=== PATIENT | female | born 1945 | race Caucasian/White ===

== ENCOUNTER 2017-06-09 10:20 | Outpatient (CLI) | payer MEDICARE ==
[2017-06-09 11:43] LABS: Hematocrit 35.6 % (36.0-47.0); White Blood Cell (WBC) Count 8.4 thou/uL (4.8-10.8)
[2017-06-09 12:08] LABS: Anion Gap 11 mmol/L (10-20); BUN (Urea Nitrogen) 15 mg/dL (9.8-20.1); Calc. Creatinine Clearance 0 mL/min (70-130); Calcium 9.7 mg/dL (7.8-10.44); Carbon Dioxide 26 mmol/L (23-31); Chloride 101 mmol/L (98-107); Estimated GFR-MDRD 71
== END 2017-06-09 10:21 | disposition home or self-care (01) ==
LOC: LABBT 10:20
PROVIDERS: ATTEND Thoracic Surgery (Cardiothoracic Vascular Surgery)
DX: Z01.812 Encounter for preprocedural laboratory examination (principal)
CPT/HCPCS: 80048; 85027

== ENCOUNTER 2017-06-12 05:49 | Day surgery (SDC) | payer MEDICARE ==
--- NOTE | 2017-06-08 22:40 | HP ---
HISTORY OF PRESENT ILLNESS: This is a 72-year-old female who has been seen for vascular disease by qian rodriguez for several years. She recently has been unable to walk very far due to complaints of fatigue as well as pain in the lower back, hips and thighs. She thinks the right side is worse than the left . She is now as mentioned using a walker to get around. PAST MEDICAL HISTORY: Significant for remote stroke that has left her with some mild speech impedime nt and some memory issues. Her cardiovascular risk factors include hypertension and dyslipidemia. S he has a history of abdominal aortic aneurysm, coronary artery disease, degenerative joint disease. PAST SURGICAL HISTORY: Includes hysterectomy, right carotid endarterectomy in 2014 followed by coron andrew artery bypass grafting as well as a left carotid endarterectomy in 2016. SOCIAL HISTORY: The patient was a former smoker, but none in the past several years. She does not u se alcohol. MEDICATIONS: Include Crestor 40, aspirin 325, lisinopril 10 daily, Zetia 10 daily, Plavix 75 daily, Norvasc 10 daily, Glucosamine and iron supplements. ALLERGIES: She reports no allergies. REVIEW OF SYSTEMS: Significant for some weight loss. She denies any respiratory symptoms such as co ugh or dyspnea on exertion. She has no chest pain at rest or with exertion. She has no abdominal pa in, no change in bowel habits. No urinary complaints. She does admit to balance difficulty, some sp eech difficulty, if she gets anxious or excited. She has memory loss. CT scan demonstrated a 3.9 cm abdominal aortic aneurysm with an intimal flap in the infrarenal aorta. She also has a distal aorti c and bilateral common iliac artery stenosis with the right being worse than the left and the right h aving some tortuosity. She has some mild to moderate renal artery stenosis as well as celiac artery stenosis and some moderate distal vascular disease. PHYSICAL EXAMINATION: VITAL SIGNS: Weight is 101, height 5 foot 1 inches, blood pressure 170/70, alert, cooperative lady i n no distress. NECK: Bilateral bruits, prominent right clavicular head. CARDIAC: Regular rate and rhythm, no murmurs. LUNGS: Clear to auscultation bilaterally. ABDOMEN: Soft, nontender, nondistended with prominent aortic pulsation and bilateral pelvic bruits. EXTREMITIES: No peripheral edema with a strong right femoral pulse and dorsalis pedis pulse and a we nanette left femoral and dorsalis pedis pulse. IMAGING: Abdominal ultrasound demonstrates 3.6 cm abdominal aneurysm with elevated renal velocities bilaterally of 361 on the left and 467 on the right. She has a left iliac velocity of 374 cm per sec ond and right of 194 cm per second. PLAN: At this time is for angiography and possible bilateral iliac artery stenting.
[2017-06-09 10:49] VITALS: BMI 18.6
[2017-06-12] MEDS ORDERED: Heparin 1000 UNIT/NS 500ML(OR) 500 ML ONE (06:37)
[2017-06-12] MEDS ORDERED: Midazolam HCl 2 mg/2 ml Vial ONE (07:16)
[2017-06-12] MEDS ORDERED: Fentanyl 100 MCG/2 ML VIAL ONE ×2 (07:17→10:16)
[2017-06-12] MEDS ORDERED: Heparin 10,000 UNITS/1 ML VIAL ONE (07:41)
[2017-06-12] MEDS ORDERED: Protamine Sulfate 50 MG/5 ML VIAL ONE (08:27)
[2017-06-12] MEDS ORDERED: Amlodipine 5 MG TAB ONE (09:03)
[2017-06-12] MEDS ORDERED: Lisinopril 10 MG TAB ONE (09:04)
--- NOTE | 2017-06-12 10:13 | OP ---
PREOPERATIVE DIAGNOSIS: Peripheral artery disease with severe claudication. POSTOPERATIVE DIAGNOSIS: Peripheral artery disease with severe claudication. PROCEDURE: Aortoiliac femoral angiograms with right common iliac stent x2, 7 x 27, and left common i liac x1, 7 x 37 using kissing stent technique. CONTRAST: 44. FLUOROSCOPY: 20 minutes. DESCRIPTION OF PROCEDURE: After adequate prepping and draping, 1% lidocaine was used to infiltrate t he right groin, access was obtained. Wire passed and a 5 [place] dilator and sheath. Following this, angiography was obtained retrograde and then through a Contra catheter. This demonstrated high grad e stenosis of the right common iliac artery. It also showed an abdominal aortic aneurysm. Following this, the left groin was anesthetized and punctured and a 6 [place] marker sheath was advanced. Hepa rin was given x10,000 units and two 5,000 units boluses to obtain an adequate ACT. A 5-[place] sheath on the right was exchanged for a 6 [place] marker sheath. A 5 x 4 balloons were then used to predila te the common iliac arteries bilaterally. Following this, on the left, a 7 x 37 stent was advanced a nd positioned. On the right, a 7 x 27 stent would not advance through the stenosis and upon withdraw ing it into the sheath, the stent began to deploy. It was then readvanced as far as it would go and deployed with about distal 3/4 of it being balloon. Following this, a 5 x 2 balloon would not advanc e over the wire. A glide catheter was then advanced over the wire and did go through the stent and a Magic Torque wire was then placed for additional stiffness. Following this, a 5 x 2 balloon was abl e to be advanced and inflated. A second 7 x 27 stent was then advanced into the previously deployed 7 x 27 stent and advanced slightly farther into the aorta to obtain full coverage as the initial sten t did not completely cover the stenosis due to the inability to advance it initially. Following this , bilateral stenting was deployed in the kissing stent fashion following which retrograde angiography bilaterally demonstrated nice result. The right side could have been post-dilated slightly in the c ommon iliac artery. However, it was elected to leave the stents as they were. The patient tolerated the procedure well.
[2017-06-12] MEDS ORDERED: Ondansetron HCl/PF 4 MG/2 ML Vial IVP PRN (10:26)
[2017-06-12] MEDS ORDERED: Fentanyl 100 MCG/2 ML VIAL SLOW IVP PRN ×2 (10:26)
[2017-06-12] MEDS ORDERED: Ondansetron HCl/PF 4 MG/2 ML Vial ONE (13:58)
[2017-06-12] MEDS ORDERED: Iopamidol 370 76% 50 ML VIAL FS ONE (17:11)
== END 2017-06-12 15:54 | disposition home or self-care (01) ==
LOC: CCL 05:49
PROVIDERS: ATTEND Thoracic Surgery (Cardiothoracic Vascular Surgery)
DX: I73.9 Peripheral vascular disease, unspecified (principal); I71.4 Abdominal aortic aneurysm, without rupture; I69.328 Other speech and language deficits following cerebral infarction; I69.311 Memory deficit following cerebral infarction; I10 Essential (primary) hypertension; I25.10 Atherosclerotic heart disease of native coronary artery without angina pectoris; M19.90 Unspecified osteoarthritis, unspecified site; Z79.899 Other long term (current) drug therapy; Z79.82 Long term (current) use of aspirin; Z79.02 Long term (current) use of antithrombotics/antiplatelets; Z91.048 Other nonmedicinal substance allergy status; Z95.1 Presence of aortocoronary bypass graft; Z90.710 Acquired absence of both cervix and uterus; Z98.890 Other specified postprocedural states; Z87.891 Personal history of nicotine dependence
CPT/HCPCS: 37221; 37223; 85347 ×2; 96374 ×2; C1725 ×2; C1769; C1876 ×2; 99152; 99153; J1644; J2250; J2405; J2720; J3010

== ENCOUNTER 2017-06-14 20:31 | Emergency (ER) | payer MEDICARE ==
[2017-06-14 22:09] LABS: #Basophils 0.1 thou/uL (0.0-0.2); #Eosinphils 0.3 thou/uL (0.0-0.7); #Lymphocytes 1.4 thou/uL (1.20-3.40); #Monocytes 0.8 thou/uL (0.11-0.59); #Neutrophils 4.9 thou/uL (1.40-6.50); %Basophils 1.2 % (0.0-1.0); %Eosinophils 3.9 % (0.0-10.0); %Lymphocytes 18.1 % (21.0-51.0); %Monocytes 11.1 % (0.0-10.0); Hematocrit 29.2 % (36.0-47.0); Mean Platelet Volume 6.6 fL (7.4-10.4); Red Blood Cell (RBC) Count 2.97 mill/uL (4.20-5.40); White Blood Cell (WBC) Count 7.5 thou/uL (4.8-10.8)
[2017-06-14 22:16] LABS: Prothrombin Time 12.8 SEC (12.0-14.7)
[2017-06-14 22:22] LABS: ALT (SGPT) Less than 7 U/L (8-55); AST (SGOT) 10 U/L (5-34); Alkaline Phosphatase 91 U/L (40-150); Anion Gap 12 mmol/L (10-20); BUN (Urea Nitrogen) 18 mg/dL (9.8-20.1); Bilirubin, Total 0.2 mg/dL (0.2-1.2); Calc. Creatinine Clearance 0 mL/min (70-130); Calcium 8.9 mg/dL (7.8-10.44); Carbon Dioxide 27 mmol/L (23-31); Chloride 103 mmol/L (98-107); Estimated GFR-MDRD 67; Protein, Total 6.7 g/dL (6.0-8.3)
--- NOTE | 2017-06-14 23:30 | ULT ---
ARTERIAL DOPPLER STUDY LEFT GROIN: 06/14/17 HISTORY: Left groin pain. Previous stent placement in the left groin. Left common femoral artery shows normal blood flow. The visualized superficial femoral artery also sh ows normal blood flow. No evidence of pseudoaneurysm identified. IMPRESSION: No evidence of pseudoaneurysm. POS: [facility]
== END 2017-06-14 23:55 | disposition home or self-care (01) ==
LOC: ERS 20:31
DX: I97.638 Postprocedural hematoma of a circulatory system organ or structure following other circulatory system procedure (principal); D64.9 Anemia, unspecified; I25.2 Old myocardial infarction; E78.5 Hyperlipidemia, unspecified; I10 Essential (primary) hypertension; Z86.73 Personal history of transient ischemic attack (TIA), and cerebral infarction without residual deficits; Z87.891 Personal history of nicotine dependence; Z79.899 Other long term (current) drug therapy; Z79.82 Long term (current) use of aspirin
CPT/HCPCS: 36415; 80053; 85025; 85610; 93923; 99406

== ENCOUNTER 2018-04-19 11:03 | Outpatient (CLI) | payer MEDICARE | END 2018-04-19 11:04 | disposition home or self-care (01) | LOC: BICMAMMO 11:03 | PROVIDERS: ATTEND Family Medicine | DX: Z12.31 Encounter for screening mammogram for malignant neoplasm of breast (principal); R92.1 Mammographic calcification found on diagnostic imaging of breast | CPT/HCPCS: 77063; 77067 ==

== ENCOUNTER 2018-07-02 12:29 | Outpatient (CLI) | payer MEDICARE ==
--- NOTE | 2018-07-02 17:05 | CT ---
CT LUMBAR SPINE NONCONTRAST: Date: 07/02/18 HISTORY: 73-year-old female with chronic low back pain, right lumbar radiculopathy, and lumbar spinal stenosis . COMPARISON: 11/09/11. FINDINGS: Again noted are the bilateral common iliac artery stents, and the severe atherosclerotic calcificatio n of the abdominal aorta and the iliac arteries. There is now a fusiform infrarenal abdominal aortic aneurysm, which is at least 3.5 cm, and perhaps larger (portions of the abdominal aorta are excluded from the field of view). There are five lumbar-type vertebrae. T12-L1: Normal. L1-2: Mild diffuse disc bulge. No central stenosis. Mild to moderate bilateral neural foraminal sten osis due to the disc bulge. Mild to moderate disc space narrowing. L2-3: Moderately large diffuse disc bulge. Mild to moderate bilateral neural foraminal stenosis. Mil d to moderate central spinal canal stenosis. L3-4: Whereas previously there was no significant disc space narrowing, now there is severe right-si ded disc space narrowing where there is right-sided sclerosis with numerous new subchondral cysts, an d vacuum disc phenomenon. There is a new finding of Grade I left lateral chronic subluxation of L3 on L4. The right lateral and far lateral component of the large diffuse disc bulge causes severe right neural foraminal stenosis, with compression of the exiting right L3 nerve root, much worse than on pr evious CT. There is moderate left neural foraminal stenosis, worse than on the previous CT. The centr al spinal canal stenosis and thecal sac stenosis is now much worse, extremely severe. L4-5: There has been interval worsening of the Grade I left lateral chronic subluxation of L4 on L5, now almost Grade II. Interval worsening of now severe disc space narrowing with end plate irregulari ty and sclerosis. Previously, the right lateral and far lateral component of the disc bulge was causi ng complete effacement of right neural foraminal fat, markedly compressing the exiting right L4 nerve root. There continues to be severe right neural foraminal stenosis. There is moderate ligamentum fla vum thickening and degenerative facet hypertrophy. Severe central spinal canal and thecal sac stenosi s. There is also moderate to severe left neural foraminal stenosis, slightly worse than before. L5-S1: Severe bilateral degenerative facet disease causes prominent Grade I anterolisthesis of L5 on S1, which appears slightly worse now. Diffuse disc bulge. Moderate to severe right neural foraminal stenosis. Very severe left neural foraminal stenosis with chronic compression of the exiting left L5 nerve root. Moderate central spinal canal stenosis. Severe bilateral lateral recess stenosis. IMPRESSION: 1. Severe lumbar spondylosis, with lower level severe degenerative disc disease and severe facet ost eoarthrosis, which have all worsened significantly since 11/09/11. 2. Interval worsening of multilevel severe neural foraminal stenosis at several levels, with esteban richie of exiting nerve roots. 3. Interval worsening of central spinal canal stenosis, which is extremely severe at L3-4, and sever e at L4-5. 4. Interval worsening of Grade I spondylolisthesis at L4-5. 5. Interval worsening of degenerative levoscoliosis. 6. Interval worsening of abdominal aortic ectasia, now aneurysmal, incompletely evaluated. 7. Bilateral common iliac artery stents. POS: [facility]
== END 2018-07-02 12:30 | disposition home or self-care (01) ==
LOC: BICCT 12:29
PROVIDERS: ATTEND Anesthesiology Pain Medicine
DX: M48.062 Spinal stenosis, lumbar region with neurogenic claudication (principal); M51.36 Other intervertebral disc degeneration, lumbar region; M47.816 Spondylosis without myelopathy or radiculopathy, lumbar region; M43.16 Spondylolisthesis, lumbar region; M41.9 Scoliosis, unspecified; I71.4 Abdominal aortic aneurysm, without rupture; Z95.828 Presence of other vascular implants and grafts
CPT/HCPCS: 72131

== ENCOUNTER 2020-05-18 10:54 | Emergency (ER) | payer MEDICARE ==
[2020-05-18] MEDS ORDERED: Ketorolac Tromethamine 30 MG/ML VIAL ONE (11:45)
[2020-05-18] MEDS ORDERED: traMADol HCl 50 MG TAB ONE (11:45)
--- NOTE | 2020-05-18 11:48 | RAD ---
Exam: Lumbar spine 3 views HISTORY: Pain. Arthritis. COMPARISON: None Correlation: CT lumbar spine 07/02/2018 FINDINGS: Diffuse bony mineralization. There is levoscoliosis of the lumbar spine, similar to the pre vious CT. Lumbar spine vertebral body heights are maintained. No fracture. There is vacuum disc phenomenon at L3-L4. There is severe loss of disc space height with calcification of the disc space a t L4-L5. There is fusion of the L5-S1 disc space. There is straightening of normal lumbar lordosis. Visualized sacrum and bony pelvis are intact There is atherosclerosis of the visualized aorta. There is aneurysmal dilatation of the distal abdomi nal aorta, incompletely evaluated. There are 2 stents injecting over the aorta and pelvis which are presumed to be in the common iliac arteries. IMPRESSION: 1. Extensive, likely chronic degenerative changes of the lumbar spine. 2. Aneurysm of the distal abdominal aorta.
== END 2020-05-18 12:55 | disposition home or self-care (01) ==
LOC: ERS 10:54
DX: M54.5 Low back pain (principal); I25.2 Old myocardial infarction; E78.5 Hyperlipidemia, unspecified; I10 Essential (primary) hypertension; F17.210 Nicotine dependence, cigarettes, uncomplicated
CPT/HCPCS: 72100; 96372; J1885

== ENCOUNTER 2022-09-27 17:10 | Emergency (ER) | payer MEDICARE ==
[2022-09-27 17:47] LABS: #Basophils 0.1 thou/uL (0.0-0.2); #Eosinphils 0.2 thou/uL (0.0-0.7); #Lymphocytes 1.1 thou/uL (1.20-3.40); #Monocytes 1.3 thou/uL (0.11-0.59); #Neutrophils 7.7 thou/uL (1.40-6.50); %Basophils 0.6 % (0.0-1.0); %Eosinophils 1.6 % (0.0-10.0); %Lymphocytes 10.7 % (21.0-51.0); %Monocytes 12.1 % (0.0-10.0); Hemoglobin 11.7 g/dL (12.0-16.0); Mean Corpuscular HGB CONC 31.9 g/dL (32.0-36.0); Mean Corpuscular Volume 97.4 fl (78.0-98.0); Mean Platelet Volume 7.9 fL (7.4-10.4); Platelet Count 278 10x3/uL (130-400); RBC Distribution Width 11.9 % (11.5-14.5); Red Blood Cell (RBC) Count 3.76 mill/uL (4.20-5.40); White Blood Cell (WBC) Count 10.3 10x3/uL (4.8-10.8)
[2022-09-27 18:17] LABS: ALT (SGPT) Less than 7 U/L (8-55); AST (SGOT) 16 U/L (5-34); Albumin 4.2 g/dL (3.4-4.8); Alkaline Phosphatase 88 U/L (40-110); Anion Gap 14 mmol/L (10-20); BUN (Urea Nitrogen) 19 mg/dL (9.8-20.1); Bilirubin, Total 0.3 mg/dL (0.2-1.2); Calc. Creatinine Clearance 0 mL/min (70-130); Calcium 9.4 mg/dL (7.8-10.44); Carbon Dioxide 26 mmol/L (23-31); Chloride 101 mmol/L (98-107); Estimated GFR 59; Globulin 3.4 g/dL (2.4-3.5); Glucose 113 mg/dL (83-110); Lipase 134 U/L (8-78); Potassium 4.3 mmol/L (3.5-5.1); Protein, Total 7.6 g/dL (5.8-8.1); Sodium 137 mmol/L (136-145)
[2022-09-27 18:31] LABS: CKMB 2.1 ng/mL (0-6.6)
[2022-09-27] MEDS ORDERED: Ipratropium/Albuterol 3 ML NEB ONE (19:18)
== END 2022-09-27 20:19 | disposition left against medical advice (07) ==
LOC: ERS 17:10
DX: R07.9 Chest pain, unspecified (principal); R06.02 Shortness of breath; E78.5 Hyperlipidemia, unspecified; I10 Essential (primary) hypertension; F17.210 Nicotine dependence, cigarettes, uncomplicated; Z79.899 Other long term (current) drug therapy
CPT/HCPCS: 36415; 71045; 80053; 82553; 83690; 84484; 85025; 93005; 94644; J7611; J7620

== ENCOUNTER 2022-09-30 05:17 | Inpatient (IN) | payer MEDICARE ==
[2022-09-30] MEDS ORDERED: Aspirin Chewable 81 MG TAB ONE (05:58)
[2022-09-30 06:07] LABS: #Basophils 0.1 thou/uL (0.0-0.2); #Eosinphils 0.2 thou/uL (0.0-0.7); #Lymphocytes 0.8 thou/uL (1.20-3.40); #Neutrophils 6.2 thou/uL (1.40-6.50); %Basophils 0.6 % (0.0-1.0); %Eosinophils 2.2 % (0.0-10.0); %Lymphocytes 9.8 % (21.0-51.0); %Monocytes 12.4 % (0.0-10.0); Hemoglobin 10.5 g/dL (12.0-16.0); Mean Corpuscular HGB CONC 32.7 g/dL (32.0-36.0); Mean Corpuscular Hemoglobin 31.8 pg (27.0-31.0); Mean Corpuscular Volume 97.3 fl (78.0-98.0); Mean Platelet Volume 7.8 fL (7.4-10.4); Platelet Count 260 10x3/uL (130-400); Red Blood Cell (RBC) Count 3.31 mill/uL (4.20-5.40); White Blood Cell (WBC) Count 8.2 10x3/uL (4.8-10.8)
[2022-09-30 06:23] LABS: ALT (SGPT) 14 U/L (8-55); AST (SGOT) 51 U/L (5-34); Albumin 3.7 g/dL (3.4-4.8); Alkaline Phosphatase 79 U/L (40-110); Anion Gap 15 mmol/L (10-20); BUN (Urea Nitrogen) 20 mg/dL (9.8-20.1); Bilirubin, Total 0.3 mg/dL (0.2-1.2); Calc. Creatinine Clearance 0 mL/min (70-130); Calcium 9.3 mg/dL (7.8-10.44); Carbon Dioxide 24 mmol/L (23-31); Chloride 104 mmol/L (98-107); Estimated GFR 66; Globulin 3.2 g/dL (2.4-3.5); Glucose 134 mg/dL (83-110); Potassium 3.5 mmol/L (3.5-5.1); Protein, Total 6.9 g/dL (5.8-8.1); Sodium 139 mmol/L (136-145)
[2022-09-30 06:50] LABS: CKMB 19.6 ng/mL (0-6.6)
[2022-09-30 07:00] LABS: SARS-CoV-2 NAA Rapid Test Not Detected (NotDetected)
[2022-09-30] MEDS ORDERED: Nitroglycerin 0.4 MG TAB (25 Tab Bottle) SL PRN (08:54)
[2022-09-30] MEDS ORDERED: Morphine 2 MG/ML VIAL SLOW IVP PRN (08:55)
[2022-09-30] MEDS ORDERED: Acetaminophen 325 MG TAB PO PRN (08:59)
[2022-09-30] MEDS ORDERED: Calcium Carbonate 500 MG ChewTAB PO PRN (08:59)
[2022-09-30] MEDS ORDERED: Ondansetron PF 4 MG/2 ML Vial IVP PRN (08:59)
[2022-09-30] MEDS ORDERED: Ondansetron ODT 4 MG TAB PO PRN (08:59)
[2022-09-30] MEDS ORDERED: Bisacodyl 10 MG SUPP PR PRN (08:59)
[2022-09-30] MEDS ORDERED: Metoprolol Tartrate 25 MG TAB PO SCH (09:00)
[2022-09-30] MEDS ORDERED: Electrolyte Replacement Protocol 1 EACH FS SCH (09:00)
[2022-09-30] MEDS ORDERED: Clopidogrel Bisulfate 75 MG TAB PO SCH (09:00)
[2022-09-30] MEDS ORDERED: NS 0.9% w/ 20 MEQ KCL 1,000 ML/1,000 ML BAG IV SCH ×2 (09:00→10:19)
[2022-09-30] MEDS ORDERED: Aspirin 81 mg Enteric Coated Tablet PO SCH (09:00)
[2022-09-30] MEDS ORDERED: Potassium Chloride 20 MEQ TAB PO SCH (09:00)
[2022-09-30] MEDS ORDERED: Communication Order-Pharmacy FS SCH (09:04)
[2022-09-30 10:22] LABS: CKMB 18.3 ng/mL (0-6.6)
[2022-09-30 12:10] VITALS: BMI 18.0
[2022-09-30] MEDS ORDERED: Magnesium 2 GM/50 ML(in water) 2 GM in Premix Bag 1 BAG IVPB SCH (13:45)
[2022-09-30] MEDS ORDERED: Nitroglycerin 2% Ointment 1 INCH/1 GM Packet TOP SCH (14:00)
[2022-09-30] MEDS ORDERED: ISOVUE-370 76%-LOCM 1 ML ONE (14:44)
[2022-09-30 16:38] VITALS: BP 138/61; TEMP 98.1
[2022-09-30] MEDS ORDERED: Atorvastatin Calcium 40 MG TAB PO SCH (21:00)
[2022-09-30] MEDS ORDERED: Docusate 100 MG CAP PO SCH (21:00)
== END 2022-09-30 18:55 | disposition hospice, home (50) | DRG 281 ==
LOC: ERS 05:17 → 2NO 08:04
PROVIDERS: ADMIT Internal Medicine; ATTEND Internal Medicine
DX: I21.4 Non-ST elevation (NSTEMI) myocardial infarction (principal); E44.0 Moderate protein-calorie malnutrition; Z68.1 Body mass index [BMI] 19.9 or less, adult; I25.10 Atherosclerotic heart disease of native coronary artery without angina pectoris; I73.9 Peripheral vascular disease, unspecified; Z66 Do not resuscitate; E78.5 Hyperlipidemia, unspecified; Z51.5 Encounter for palliative care; E87.6 Hypokalemia; N18.2 Chronic kidney disease, stage 2 (mild); J44.9 Chronic obstructive pulmonary disease, unspecified; I12.9 Hypertensive chronic kidney disease with stage 1 through stage 4 chronic kidney disease, or unspecified chronic kidney disease; F03.90 Unspecified dementia, unspecified severity, without behavioral disturbance, psychotic disturbance, mood disturbance, and anxiety; I65.29 Occlusion and stenosis of unspecified carotid artery; R91.1 Solitary pulmonary nodule; F02.80 Dementia in other diseases classified elsewhere, unspecified severity, without behavioral disturbance, psychotic disturbance, mood disturbance, and anxiety; Z20.822 Contact with and (suspected) exposure to COVID-19; Z91.048 Other nonmedicinal substance allergy status; Z79.82 Long term (current) use of aspirin; Z79.899 Other long term (current) drug therapy; Z98.890 Other specified postprocedural states; Z87.891 Personal history of nicotine dependence; Z86.73 Personal history of transient ischemic attack (TIA), and cerebral infarction without residual deficits; Z90.710 Acquired absence of both cervix and uterus; I25.2 Old myocardial infarction; Z95.1 Presence of aortocoronary bypass graft; Z79.02 Long term (current) use of antithrombotics/antiplatelets
CPT/HCPCS: 36415; 71045; 71275; 80053; 82553; 83735; 83880; 84443; 84484; 85025; 93005; 93306; J1650; J3475; J3480; Q9966